=== PATIENT | male | born 1985 | race African-American/Black ===

== ENCOUNTER 2016-04-22 06:19 | Emergency (ER) | payer MEDICAID, OTHER ==
[~2016-04-22] VITALS: Wt 92.0 kg
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
== END 2016-04-22 07:13 | disposition home or self-care (01) ==
LOC: FTE 06:19
DX: S59.911A Unspecified injury of right forearm, initial encounter (principal); F17.210 Nicotine dependence, cigarettes, uncomplicated; W26.8XXA Contact with other sharp object(s), not elsewhere classified, initial encounter; Y92.9 Unspecified place or not applicable
CPT/HCPCS: 99282

== ENCOUNTER 2016-08-10 04:14 | Emergency (ER) | payer MEDICAID, OTHER ==
[~2016-08-10] VITALS: Ht 180.3 cm; Wt 86.4 kg
[2016-08-10 04:23] VITALS: Ht 180.3 cm; Wt 86.4 kg
[2016-08-10] MEDS ORDERED: KETOROLAC 60 MG INJ IM STA (04:23)
[2016-08-10] MEDS ORDERED: morphine 10 MG INJ IM ONE (04:30)
[2016-08-10] MEDS ORDERED: NAPR-688 PO (06:00)
[2016-08-10] MEDS ORDERED: UDLOM GTB (06:00)
--- NOTE | 2016-08-10 06:11 | ERD ---
ER Documentation Chief Complaint Date/Time DATE: 08/10/16 TIME: 06:04 Chief Complaint ABD PAIN WITH DIARRHEA X 4 DAYS AFTER EATING 10/27 PIZZA HPI This 30-year-old male presents emergency room with abdominal pain and diarrhea for 4 days. His girlfriend got the same thing. They can think of anything the eighth it seemed like it may have been tainted. Neither one of them have had fevers. The patient denies any nausea or vomiting. States it is otherwise healthy. His abdominal pain is described as a sharp crampy pain and is located in his mid abdomen. Diarrhea is copious watery and nonbloody. ROS All systems reviewed and are negative except as per history of present illness. Medications Home Meds Active Scripts Diphenoxylate Hcl-Atropine* (Lomotil*) 5 Ml Soln, 5 ML GTB Q6H Y for DIARRHEA, # 10 ML Prov:MINGJAVIER 08/10/16 Naproxen* (Naproxen*) 500 Mg Tablet, 500 MG PO BID Y for PAIN, #20 TAB Prov:MINGJAVIER DO 08/10/16 Allergies Allergies: Coded Allergies: No Known Allergy (Unverified , 08/10/16) PMhx/Soc History of Surgery: Yes (right upper arm surgery) Anesthesia Reaction: No Hx Neurological Disorder: No Hx Respiratory Disorders: No Hx Cardiac Disorders: No Hx Psychiatric Problems: No Hx Miscellaneous Medical Probl: No Hx Alcohol Use: Yes (socially) Hx Substance Use: No Hx Tobacco Use: Yes (3 sticks /day) Smoking Status: Current every day smoker Physical Exam Vitals Vital Signs Date Time Temp Pulse Resp B/P Pulse Ox O2 Delivery O2 Flow Rate FiO2 08/10/16 04:23 98.9 71 18 129/69 100 Physical Exam Const: [] Head: Atraumatic Eyes: Normal Conjunctiva ENT: Normal External Ears, Nose and Mouth. Neck: Full range of motion..~ No meningismus. Resp: Clear to auscultation bilaterally Cardio: Regular rate and rhythm, no murmurs Abd: Soft, non tender, non distended. Normal bowel sounds Skin: No petechiae or rashes Back: No midline or flank tenderness Ext: No cyanosis, or edema Neur: Awake and alert Psych: Normal Mood and Affect Results 24 hrs Current Medications Medications (Trade) Dose Ordered Sig/Mc Route PRN Reason Start Time Stop Time Status Last Admin Dose Admin Morphine Sulfate (morphine) 4 mg ONCE ONCE IM 08/10/16 04:30 08/10/16 04:31 DC 08/10/16 04:33 Ketorolac Tromethamine (Toradol) 60 mg ONCE STAT IM 08/10/16 04:23 08/10/16 04:24 DC 08/10/16 04:33 Procedures/MDM Viral enteritis versus food poisoning. Benign abdominal exam. Patient was given 4 mg of morphine and IM Toradol. He was able to take good by mouth in the emergency room and has no signs of dehydration. His pain was relieved is feeling much better. Admitted discharge him naproxen for inflammation and pain as well as Lomotil for diarrhea. Primary care follow-up in 2-3 days as well as return precautions to the ER. Departure Diagnosis: Primary Impression: Viral enteritis Additional Impression: Abdominal pain Condition: Stable Patient Instructions: Gastroenteritis, Viral (6Y-Adult) Referrals: [facility] YOU HAVE RECEIVED A MEDICAL SCREENING EXAM AND THE RESULTS INDICATE THAT YOU DO NOT HAVE A CONDITION THAT REQUIRES URGENT TREATMENT IN THE EMERGENCY DEPARTMENT. FURTHER EVALUATION AND TREATMENT OF YOUR CONDITION CAN WAIT UNTIL YOU ARE SEEN IN YOUR DOCTORS OFFICE WITHIN THE NEXT 1-2 DAYS. IT IS YOUR RESPONSIBILITY TO MAKE AN APPOINTMENT FOR FOLOW-UP CARE. IF YOU HAVE A PRIMARY DOCTOR --you should call your primary doctor and schedule an appointment IF YOU DO NOT HAVE A PRIMARY DOCTOR YOU CAN CALL OUR PHYSICIAN REFERRAL HOTLINE AT IF YOU CAN NOT AFFORD TO SEE A PHYSICIAN YOU CAN CHOSE FROM THE FOLLOWING [facility] [address] [facility] [address] [facility] [facility] [address] [facility] [address] [facility] [address] [facility]. [facility]. [address] Additional Instructions: Call your primary care doctor TOMORROW for an appointment during the next 2-3 days.See the doctor sooner or return here if your condition worsens before your appointment time. JAVIER LAI DO Aug 10, 2016 06:11
[2016-08-10 06:19] VITALS: BP 103/78; PULSE 64; RESP 16; TEMP 98.9
== END 2016-08-10 06:19 | disposition home or self-care (01) ==
LOC: E/R 04:14
DX: A08.4 Viral intestinal infection, unspecified (principal); F17.210 Nicotine dependence, cigarettes, uncomplicated
CPT/HCPCS: 96372; J1885; J2270; Z7502